=== PATIENT | male | born 1955 | race Caucasian/White ===

== ENCOUNTER 2023-09-20 06:54 | Day surgery (SDC) | payer MEDICARE, BC ==
[2023-09-20] MEDS ORDERED: Phenylephrine 0.5% Nasal Spray 15 ML Bot NAS ONE (06:55)
[2023-09-20] MEDS ORDERED: Propofol 200 MG/20 ML SDV IV ONE (06:55)
[2023-09-20] MEDS ORDERED: Lidocaine 2% 5 ML SDV IV ONE (06:55)
[2023-09-20] MEDS ORDERED: Lactated Ringers 1,000 ML IV SCH (07:00)
[2023-09-20] MEDS ORDERED: Sodium Chloride 0.9% 10 ML Syringe FLUSH PRN (07:00)
[2023-09-20] MEDS ORDERED: Simethicone Drops 40 MG/0.6 ML 30 ML Bottle ONE (08:09)
== END 2023-09-20 09:30 | disposition home or self-care (01) ==
LOC: FB.SDS 06:54
PROVIDERS: ATTEND Surgery
DX: Z12.11 Encounter for screening for malignant neoplasm of colon (principal); D12.6 Benign neoplasm of colon, unspecified; I10 Essential (primary) hypertension; E66.9 Obesity, unspecified; Z68.41 Body mass index [BMI] 40.0-44.9, adult; Z87.891 Personal history of nicotine dependence; Z79.899 Other long term (current) drug therapy
CPT/HCPCS: 00811; 82947; 88305; A9270-GY; J2704; J7120